=== PATIENT | female | born 2000 | race Caucasian/White ===

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

== ENCOUNTER 2018-01-10 15:56 | Emergency (ER) | payer SELFPAY ==
[~2018-01-10] VITALS: Ht 167.6 cm; Wt 75.7 kg
[~2018-01-10 15:56] MED LIST changes: +IBUPROFEN600 MG PO
[2018-01-10 15:57] VITALS: BP 116/59
[2018-01-10] MEDS ORDERED: PROVENTIL HFA6.7 GM INH (17:05)
[2018-01-10] MEDS ORDERED: PREDNISONE20 M1 PO (17:05)
[2018-01-10] MEDS ORDERED: TESSALON PERLE100 M1 PO (17:05)
[2018-01-10] MEDS ORDERED: ZITHROMAX250 MG PO (17:05)
== END 2018-01-10 17:08 | disposition home or self-care (01) ==
LOC: ED 15:56
DX: J45.909 Unspecified asthma, uncomplicated (principal)

== ENCOUNTER 2021-06-11 03:47 | Emergency (ER) | payer OTHER ==
[~2021-06-11] VITALS: Ht 167.6 cm; Wt 77.1 kg
[~2021-06-11 03:47] MED LIST changes: +PROVENTIL HFA6.7 GM INH; +TESSALON PERLE100 M1 PO; +ZITHROMAX250 MG PO
[2021-06-11 03:48] VITALS: BP 131/82
[2021-06-11 04:40] LABS: BILIRUBIN Negative (Negative); BLOOD Trace-Lysed (Negative); CLARITY Cloudy (Clear); COLOR Yellow (Yellow); GLUCOSE Negative (Negative); KETONE Negative (Negative); LEUKO ESTERASE 3+ (Negative); NITRITE Negative (Negative); PH 7.5 (4.5-8.0); UROBILINOGEN 0.2 E.U./dl (0.0-1.0)
[2021-06-11 04:54] LABS: BACTERIA 1+; EPITHELIAL CELLS 31-40; WBC 16-20 wbc/hpf (0-5)
[2021-06-11] MEDS ORDERED: MACROBID100 M1 PO (08:16)
== END 2021-06-11 08:20 | disposition home or self-care (01) ==
LOC: ED 03:47
PROVIDERS: Internal Medicine
DX: N83.202 Unspecified ovarian cyst, left side (principal); N39.0 Urinary tract infection, site not specified; R11.2 Nausea with vomiting, unspecified; Z87.42 Personal history of other diseases of the female genital tract; Z79.899 Other long term (current) drug therapy; Z79.2 Long term (current) use of antibiotics; Z97.5 Presence of (intrauterine) contraceptive device